=== PATIENT | female | born 1960 | race Caucasian/White ===

== ENCOUNTER → 2023-07-26 | Outpatient (CLI) ==
[2023-07-26 20:38] LABS: ABSOLUTE RETIC # 46 10e9/uL (24-90); RETICULOCYTE % 0.99 % (0.50-2.40)
[2023-07-26 21:20] LABS: EOSINOPHILS % (MANUAL) 8 %; LYMPHOCYTES % (MANUAL) 37 %; MONOCYTES % (MANUAL) 3 %; NEUTROPHILS % (MANUAL) 57 %
[2023-07-26 21:23] LABS: RBC MORPH NORMAL
== END ==
LOC: LABNPT 20:28
PROVIDERS: ATTEND Family Medicine
DX: Z01.89 Encounter for other specified special examinations (principal)
CPT/HCPCS: 85007; 85045; 85055